=== PATIENT | female | born 1965 | race Hispanic/Latino ===

== ENCOUNTER → 2025-06-23 | Outpatient (REF) | payer OTHER ==
[~2025-06-23] MED LIST: CYMBALTA30 MG PO; DICLOFENAC PO; GABAPENTIN300 MG PO; GLUCOSAMINE &1 EACH PO; LEVOTHYROXINE50 MCG PO; MAGNESIUM200 MG PO; METHOCARBAMOL750 MG PO; PANTOPRAZOLE SO40 MG PO; ULTRAM 50MG50 MG PO
== END ==
LOC: RAD 10:05 → EDSTATUS 06-26 14:00
PROVIDERS: ATTEND Internal Medicine Gastroenterology
DX: Z01.818 Encounter for other preprocedural examination (principal); Z12.11 Encounter for screening for malignant neoplasm of colon; R14.0 Abdominal distension (gaseous); R43.8 Other disturbances of smell and taste
CPT/HCPCS: 93005